=== PATIENT | female | born 1980 | race Caucasian/White ===

== ENCOUNTER 2017-04-03 12:12 | Emergency (ER) | payer OTHER, SELFPAY ==
[~2017-04-03] VITALS: Ht 165.1 cm; Wt 84.8 kg
[~2017-04-03 12:12] MED LIST: AMBIEN10 MG PO; LAMOTRIGINE100 MG PO; NAPROXEN500 MG PO; NORCO 5-325 TA1 EACH PO; PRISTIQ ER50 MG PO; SEROQUEL200 MG PO; XANAX0.25 MG PO
[2017-04-03] MEDS ORDERED: AMBIEN10 MG PO (12:30)
[2017-04-03] MEDS ORDERED: XANAX0.5 MG PO (12:31)
--- NOTE | 2017-04-04 17:49 | EKG ---
[facility] [address] [facility] [place], [place] [address] Signed Normal sinus rhythm Normal ECG No previous ECGs available Confirmed by BEST BROWN MD ([id number] on 04/04/2017 5:49:20 PM Electronically Signed By: BEST BROWN MD 04/04/17 1749 PATIENT NAME: MONTEZ GUNN Electrocardiogram DATE OF : 80 PHYSICIAN: BEST BROWN MD REPORT #: [id number] REPORT IS CONFIDENTIAL AND NOT TO BE RELEASED WITHOUT AUTHORIZATION
== END 2017-04-04 11:15 | disposition home or self-care (01) ==
LOC: ED 12:12
DX: T42.4X2A Poisoning by benzodiazepines, intentional self-harm, initial encounter (principal); F17.200 Nicotine dependence, unspecified, uncomplicated; Z79.899 Other long term (current) drug therapy
CPT/HCPCS: 36415; 80053; 80176; 81001; 84443; 84703; 85025; 93005; 93010; 99283; G0480